=== PATIENT | male | born 1995 | race Caucasian/White ===

== ENCOUNTER 2019-01-31 13:09 | Emergency (ER) | payer OTHER ==
[~2019-01-31] VITALS: Ht 170.2 cm; Wt 81.0 kg
[2019-01-31] MEDS ORDERED: KETOROLAC 60MG/2ML VIAL IM ONE (15:45)
[2019-01-31 16:13] VITALS: BP 138/75
== END 2019-01-31 16:14 | disposition home or self-care (01) ==
LOC: ER 13:38
DX: S16.1XXA Strain of muscle, fascia and tendon at neck level, initial encounter (principal); F12.10 Cannabis abuse, uncomplicated; V49.88XA Car occupant (driver) (passenger) injured in other specified transport accidents, initial encounter; Y93.89 Activity, other specified; Y92.89 Other specified places as the place of occurrence of the external cause; Y99.8 Other external cause status
CPT/HCPCS: 96372; 99283; J1885